=== PATIENT | male | born 1975 | race Caucasian/White ===

== ENCOUNTER 2021-01-28 18:33 | Inpatient (IN) | payer SELFPAY ==
[~2021-01-28] VITALS: Ht 193 cm; Wt 148.1 kg
[2021-01-28 18:33] VITALS: BP_SYST 126
[2021-01-28 19:04] LABS: BASOPHILS % (AUTO) 0.5 % (0.0-2.0); EOSINOPHILS # (AUTO) 0.4 K/uL (0.0-0.4); EOSINOPHILS % (AUTO) 7.2 % (0.0-4.0); HEMATOCRIT 42.8 % (36-54); HEMOGLOBIN 14.1 g/dL (14.0-18.0); LYMPHOCYTES % (AUTO) 19.2 % (20.5-51.5); MEAN CORPUSCULAR HEMOGLOBIN 30 pg (27-31); MEAN CORPUSCULAR HGB CONC 33 % (32-36); MEAN CORPUSCULAR VOLUME 91 fL (79.0-98.0); MONOCYTES # (AUTO) 0.5 K/uL (0.0-1.0); MONOCYTES % (AUTO) 10.2 % (1.7-9.3); NEUTROPHILS # (AUTO) 3.3 K/uL (1.8-7.7); NEUTROPHILS % (AUTO) 62.9 % (40.0-70.0); PLATELET COUNT (AUTO) 274 K/uL (130-430); RED BLOOD CELL COUNT(AUTO) 4.71 MIL/uL (4.2-6.2); RED CELL DISTRIBUTION WIDTH 15.3 % (9.0-15.0); WHITE BLOOD COUNT (AUTO) 5.2 K/uL (4.8-10.8)
[2021-01-28 19:11] LABS: ANION GAP 10 (5-15); CHLORIDE 101 mmol/L (98-107); CREATININE 1.15 mg/dL (0.55-1.30); GLUCOSE 85 mg/dL (70-99); POTASSIUM 3.6 mmol/L (3.5-5.1); SODIUM SERUM 139 mmol/L (136-145); UREA NITROGEN, BLOOD 15 mg/dL (8-21)
[2021-01-28 19:12] LABS: GFR AFRICAN AMERICAN 88 mL/min (>90)
[2021-01-28 19:18] LABS: ALANINE AMINOTRANSFERASE 36 U/L (12-78); ALBUMIN 3.8 g/dL (3.4-4.8); ALCOHOL, BLOOD 117 mg/dL (<10); ASPARTATE AMINOTRANSFERASE 23 U/L (10-37); TOTAL BILIRUBIN 0.4 mg/dL (0.0-1.0)
[2021-01-28 19:19] LABS: ACETAMINOPHEN < 1 ug/mL (1-30)
[2021-01-28] MEDS ORDERED: LORazepam 2 MG/ML VIAL IVP ONE ×2 (19:45→21:30)
[2021-01-28] MEDS ORDERED: NACL 0.9% 1,000 ML IV ONE (19:45)
[2021-01-28] MEDS ORDERED: FOLIC ACID 1 MG, THIAMINE HCL 100 MG, MAGNESIUM SULFATE 1 GM, MVI 10 ML in NACL 0.9% 1,... IV ONE (21:00)
[2021-01-28] MEDS ORDERED: LORazepam 2 MG/ML VIAL IVP PRN (21:00)
[2021-01-28] MEDS ORDERED: BUPR100T13 PO (21:05)
[2021-01-28] MEDS ORDERED: BUPR75TA8 PO (21:05)
[2021-01-28] MEDS ORDERED: ZOLP10TA2 PO (21:05)
[2021-01-28 21:54] VITALS: BP_SYST 145
[2021-01-28] MEDS ORDERED: MAGNESIUM SULFATE 1 GM/2 ML VIAL ONE (21:59)
[2021-01-28] MEDS ORDERED: THIAMINE HCL 100 MG/ML VIAL ONE (21:59)
[2021-01-28] MEDS ORDERED: FOLIC ACID 5 MG/ML VIAL IV ONE (21:59)
[2021-01-28] MEDS ORDERED: MVI 10 ML VIAL IV ONE (21:59)
[2021-01-28] MEDS ORDERED: buPROPion HCL 100 MG TABLET.SA PO ONE (22:45)
[2021-01-28] MEDS ORDERED: KETOROLAC TROMETHAMINE 30 MG VIAL IVP ONE (23:30)
[2021-01-28] MEDS ORDERED: NALOXONE HCL 0.4 MG/ML AMP (NARCAN) IVP PRN ×2 (23:30)
[2021-01-28] MEDS ORDERED: HYDROcodone/ACETAMIN 5-325 MG TAB (NORCO/ VICODIN) PO PRN (23:30)
[2021-01-28] MEDS ORDERED: ONDANSETRON HCL 4 MG/2 ML VIAL IVP PRN (23:30)
[2021-01-28] MEDS ORDERED: HYDROcodone/ACETAMIN 10-325 MG TAB PO PRN (23:30)
[2021-01-28] MEDS ORDERED: ACETAMINOPHEN 325 MG TABLET PO PRN (23:30)
[2021-01-28] MEDS: LORazepam 2 MG/ML VIAL IVP PRN (23:53)
[2021-01-29 01:00] VITALS: BP_SYST 152
[2021-01-29] MEDS ORDERED: DIPHENHYDRAMINE HCL 50 MG CAPSULE PO ONE (01:15)
[2021-01-29] MEDS: LORazepam 2 MG/ML VIAL IVP PRN (04:05)
[2021-01-29] MEDS ORDERED: NORMAL SALINE 5 ML DISP.SYRIN IVF SCH ×2 (06:00)
[2021-01-29 06:49] LABS: EOSINOPHILS # (AUTO) 0.5 K/uL (0.0-0.4); EOSINOPHILS % (AUTO) 9.7 % (0.0-4.0); HEMATOCRIT 40.8 % (36-54); HEMOGLOBIN 13.5 g/dL (14.0-18.0); LYMPHOCYTES # (AUTO) 1.1 K/uL (1.0-5.5); MEAN CORPUSCULAR HEMOGLOBIN 30 pg (27-31); MEAN CORPUSCULAR HGB CONC 33 % (32-36); MEAN CORPUSCULAR VOLUME 90 fL (79.0-98.0); MONOCYTES # (AUTO) 0.7 K/uL (0.0-1.0); MONOCYTES % (AUTO) 13.9 % (1.7-9.3); NEUTROPHILS # (AUTO) 2.7 K/uL (1.8-7.7); NEUTROPHILS % (AUTO) 53.4 % (40.0-70.0); PLATELET COUNT (AUTO) 263 K/uL (130-430); RED BLOOD CELL COUNT(AUTO) 4.52 MIL/uL (4.2-6.2); RED CELL DISTRIBUTION WIDTH 15.3 % (9.0-15.0)
[2021-01-29 07:11] LABS: CALCIUM 8.4 mg/dL (8.4-11.0); CREATININE 0.89 mg/dL (0.55-1.30); PHOSPHORUS 3.5 mg/dL (2.7-4.5); POTASSIUM 4.2 mmol/L (3.5-5.1)
[2021-01-29] MEDS ORDERED: buPROPion HCL 100 MG TABLET.SA PO SCH (09:00)
== END 2021-01-29 07:26 | disposition left against medical advice (07) | DRG 918 ==
LOC: EDBD 18:33 → SED 18:33 → STU 20:51
PROVIDERS: ADMIT Preventive Medicine Preventive Medicine/Occupational Environmental Medicine; ATTEND Preventive Medicine Preventive Medicine/Occupational Environmental Medicine
DX: T50.901A Poisoning by unspecified drugs, medicaments and biological substances, accidental (unintentional), initial encounter (principal); G40.909 Epilepsy, unspecified, not intractable, without status epilepticus; F10.129 Alcohol abuse with intoxication, unspecified; Z20.822 Contact with and (suspected) exposure to COVID-19; Y90.9 Presence of alcohol in blood, level not specified; Z53.29 Procedure and treatment not carried out because of patient's decision for other reasons; Y92.89 Other specified places as the place of occurrence of the external cause
CPT/HCPCS: 36415; 70450-TC; 71045; 76376; 80048; 80053; 82550; 83735; 84100; 85025; 93005; 96361; 96374; 96376; 99285; G0378; G0480; G0481; G0482; J1885; J2060; J3411; J3475; J3490; Q0163